=== PATIENT | female | born 1960 | race Caucasian/White ===

== ENCOUNTER 2022-03-23 10:37 | Emergency (ER) | payer OTHER ==
[~2022-03-23] VITALS: Ht 170.2 cm; Wt 86.6 kg
[2022-03-23 12:47] LABS: BASOPHILS ABSOLUTE AUTO 0.07 K/mm3 (0.00-0.23); BASOPHILS PERCENT AUTO 1 % (0-2); EOSINOPHILS ABSOLUTE AUTO 0.08 K/mm3 (0.00-0.68); EOSINOPHILS PERCENT AUTO 1 % (0-6); Hematocrit 43.3 % (33.0-51.0); Hemoglobin 14.2 g/dL (11.5-16.0); IMMATURE GRAN ABSOLUTE AUTO 0.04 K/mm3 (0.00-0.10); IMMATURE GRAN PERCENT AUTO 0 % (0-1); LYMPHOCYTES ABSOLUTE AUTO 2.61 K/mm3 (0.84-5.20); LYMPHOCYTES PERCENT AUTO 21 % (21-46); MONOCYTES ABSOLUTE AUTO 0.73 K/mm3 (0.16-1.47); MONOCYTES PERCENT AUTO 6 % (4-13); Mean Corpuscular HGB 28.6 pg (26.0-34.0); Mean Corpuscular HGB Conc 32.8 g/dL (31.5-36.5); Mean Corpuscular Volume 87 fL (80-100); Mean Platelet Volume 9.1 fL (9.1-12.4); NEUTROPHILS ABSOLUTE AUTO 8.91 K/mm3 (1.96-9.15); NEUTROPHILS PERCENT AUTO 72 % (41-73); Platelet Count 294 K/mm3 (150-400); RDW Coefficient Variation 12.5 % (11.7-14.2); RDW Standard Deviation 40.1 fL (35.1-46.3); Red Blood Cell Count 4.96 M/mm3 (3.80-5.20); White Blood Cell Count 12.44 K/mm3 (4.00-11.30)
[2022-03-23 13:11] LABS: Albumin, Blood 3.4 g/dL (3.4-5.0); Albumin/Globulin Ratio 0.7 (0.8-1.8); Bilirubin, Total 0.5 mg/dL (0.1-1.0); Bun/Creatinine Ratio 15.7 (12.0-20.0); Calcium, Blood 9.7 mg/dL (8.5-10.1); Creatinine, Blood 0.77 mg/dL (0.40-1.00); Globulin, Blood 4.8 g/dL (2.2-4.0); Potassium, Blood 4.5 mmol/L (3.5-5.5); Total Protein, Blood 8.2 g/dL (6.4-8.2)
== END 2022-03-23 14:44 | disposition left against medical advice (07) ==
LOC: ER 10:37
PROVIDERS: Physician Assistant
DX: L02.211 Cutaneous abscess of abdominal wall (principal); Z53.21 Procedure and treatment not carried out due to patient leaving prior to being seen by health care provider
CPT/HCPCS: 36415; 80053; 85025

== ENCOUNTER 2023-11-03 07:59 | Day surgery (SDC) | payer OTHER ==
[2023-11-03] VITALS (14 sets, daily range): BP systolic 115–182; BP diastolic 68–90
[~2023-11-03] VITALS: Ht 169 cm; Wt 92.9 kg
[~2023-11-03 07:59] MED LIST: FENO160 PO; Lactated Ringer's 1,000 ML IV SCH; METHI10 PO
--- NOTE | 2023-11-03 08:42 | NUR ---
History, Chart, Medications and Allergies reviewed before start of procedure. Patient up to Ambulate independently. Gait steady. Pre-Op teaching done. Pt verbalizes understanding. Patient confirms NPO status and agrees with scheduled surgery. Patient states colon prep results light yellow without sediment. Patient States Post-Procedure ride home has been arranged.
[2023-11-03] MEDS ORDERED: propofoL 40 ML IV ONE (09:02)
--- NOTE | 2023-11-03 09:23 | NUR ---
11/03/23 0922 Simon Higgins HISTORY, CHART, MEDICATIONS AND ALLERGIES REVIEWED BEFORE START OF PROCEDURE. PATIENT CONFIRMS NPO STATUS AND AGREES WITH SCHEDULED PROCEDURE. 3-LEAD EKG REVIEWED WITH PHYSICIAN PRIOR TO START OF PROCEDURE. MONITOR INTACT WITH CONTINUOUS PULSE OXIMETRY,CAPNOGRAPHY, 3-LEAD EKG, INTERMITTENT BP. SUPPLEMENTAL O2 TO BE TITRATED THROUGHOUT PROCEDURE TO MAINTAIN O2 SATURATION ABOVE 90%. PATIENT DETERMINED TO BE ASA APPROPRIATE FOR PROPOFOL SEDATION PRIOR TO START OF PROCEDURE BY DR. MORRISSEY.
--- NOTE | 2023-11-03 09:44 | NUR ---
PT TO DAY SURGERY STEP DOWN FROM COLONOSCOPY. BEDSIDE REPORT RECEIEVED. PT IS SLEEPY, BUT RESPONDS TO RN VOICE; ABLE TO MOVE SELF IN BED. VSS. NO COMPLAINTS AT THIS TIME.
--- NOTE | 2023-11-03 10:09 | NUR ---
PT DECLINES PO FLUIDS Patient States Post-Procedure ride home has been arranged.
--- NOTE | 2023-11-03 10:16 | NUR ---
Discharge instructions reviewed with patient. Patient verbalizes understanding. Copy given to patient to take home.
--- NOTE | 2023-11-03 10:23 | NUR ---
Patient up to Ambulate independently. Gait steady. Discharged via wheelchair to private car for ride home.
== END 2023-11-03 10:23 | disposition home or self-care (01) ==
LOC: ORSCMMR 07:59 → ORD 09:00 → ORSCMMR 09:00
PROVIDERS: Internal Medicine Gastroenterology
PROC: 0DBL8ZX Excision of Transverse Colon, Via Natural or Artificial Opening Endoscopic, Diagnostic (ICD-10-PCS; principal; 2023-11-03 09:00)
PROC: 0DBN8ZX Excision of Sigmoid Colon, Via Natural or Artificial Opening Endoscopic, Diagnostic (ICD-10-PCS; principal; 2023-11-03 09:00)
DX: Z12.11 Encounter for screening for malignant neoplasm of colon (principal); D12.3 Benign neoplasm of transverse colon; K63.5 Polyp of colon; E05.00 Thyrotoxicosis with diffuse goiter without thyrotoxic crisis or storm; E78.00 Pure hypercholesterolemia, unspecified; E05.90 Thyrotoxicosis, unspecified without thyrotoxic crisis or storm; Z79.899 Other long term (current) drug therapy
CPT/HCPCS: 88305; J2704; J7120

== ENCOUNTER 2025-01-02 06:12 | Inpatient (IN) | payer OTHER ==
[~2025-01-02] VITALS: Ht 170.2 cm; Wt 88.6 kg
[~2025-01-02 06:12] MED LIST changes: -Lactated Ringer's 1,000 ML IV SCH
[2025-01-02] MEDS ORDERED: Lactated Ringer's 1,000 ML IV ONE ×2 (06:40)
[2025-01-02] MEDS ORDERED: Ondansetron HCl 2 MG / ML 2ML Vial IV ONE (06:40)
[2025-01-02] MEDS ORDERED: Ketorolac Tromethamine 30mg Vial IV ONE (06:40)
[2025-01-02 06:47] LABS: BASOPHILS ABSOLUTE AUTO 0.02 K/mm3 (0.00-0.23); BASOPHILS PERCENT AUTO 0 % (0-2); EOSINOPHILS ABSOLUTE AUTO 0.03 K/mm3 (0.00-0.68); EOSINOPHILS PERCENT AUTO 1 % (0-6); Hematocrit 40.7 % (33.0-51.0); Hemoglobin 13.9 g/dL (11.5-16.0); IMMATURE GRAN ABSOLUTE AUTO 0.01 K/mm3 (0.00-0.10); IMMATURE GRAN PERCENT AUTO 0 % (0-1); LYMPHOCYTES ABSOLUTE AUTO 1.25 K/mm3 (0.84-5.20); LYMPHOCYTES PERCENT AUTO 20 % (21-46); MONOCYTES ABSOLUTE AUTO 0.04 K/mm3 (0.16-1.47); MONOCYTES PERCENT AUTO 1 % (4-13); Mean Corpuscular HGB 29.3 pg (26.0-34.0); Mean Corpuscular HGB Conc 34.2 g/dL (31.5-36.5); Mean Corpuscular Volume 86 fL (80-100); Mean Platelet Volume 9.6 fL (9.1-12.4); NEUTROPHILS ABSOLUTE AUTO 4.96 K/mm3 (1.96-9.15); NEUTROPHILS PERCENT AUTO 79 % (41-73); Platelet Count 153 K/mm3 (150-400); RDW Coefficient Variation 12.7 % (11.7-14.2); RDW Standard Deviation 39.7 fL (35.1-46.3); Red Blood Cell Count 4.75 M/mm3 (3.80-5.20); White Blood Cell Count 6.31 K/mm3 (4.00-11.30)
[2025-01-02 07:17] LABS: Albumin, Blood 3.5 g/dL (3.4-5.0); Albumin/Globulin Ratio 0.9 (0.8-1.8); Bilirubin, Total 0.9 mg/dL (0.1-1.0); Bun/Creatinine Ratio 12.8 (12.0-20.0); Calcium, Blood 8.7 mg/dL (8.5-10.1); Creatinine, Blood 0.86 mg/dL (0.40-1.00); Globulin, Blood 3.8 g/dL (2.2-4.0); Magnesium, Blood 1.8 mg/dL (1.6-2.4); Phosphorus, Blood 2.6 mg/dL (2.5-4.9); Potassium, Blood 3.9 mmol/L (3.5-5.5); Total Protein, Blood 7.3 g/dL (6.4-8.2)
[2025-01-02 07:23] LABS: Influenza A, PCR NEGATIVE (NEGATIVE); Influenza B, PCR NEGATIVE (NEGATIVE); Resp Syncytial Virus, PCR NEGATIVE (NEGATIVE); SARS-Cov-2 (COVID-19) PCR, MMC NEGATIVE (NEGATIVE)
[2025-01-02 07:34] LABS: Free Thyroxine 1.3 ng/dL (0.70-1.60); Thyroid Stimulating Hormone 0.066 uIU/mL (0.360-4.800); Triiodothyronine, Free 3.32 pg/mL (2.18-3.98)
[2025-01-02 07:51] LABS: International Normalized Ratio 1.04; Prothrombin Time Results 11.4 Sec (9.7-11.5)
[2025-01-02 09:34] LABS: Source, Urine Voided
[2025-01-02 09:36] LABS: Appearance, Urine Clear (Clear); Bilirubin, Urine Neg (Neg); Blood, Urine Neg (Neg); Color, Urine Yellow (P-Yellow); Glucose Qualitative, Urine Neg (Neg); Ketones, Urine Neg (Neg); Leukocyte Esterase, Urine 2+ (Neg); Nitrite, Urine Neg (Neg); Protein, Urine 1+ (Neg); Urobilinogen, Urine NORM (Normal)
[2025-01-02 09:43] LABS: Red Blood Cells, Urine 0-2 /hpf (0-2)
[2025-01-02 09:44] LABS: Bacteria Few /hpf; Squamous Epithelial Cells Few /hpf (Few)
[2025-01-02] MEDS ORDERED: CefTRIAXone Sodium 1,000 MG in NS 50 ML IV ONE (10:15)
[2025-01-02] MEDS ORDERED: MetroNIDAZOLE 500MG/NS 100 ml 100 ML IV ONE (10:15)
[2025-01-02] MEDS ORDERED: Ondansetron HCl 2 MG / ML 2ML Vial IV PRN (10:50)
[2025-01-02] MEDS ORDERED: NS 1,000 ML IV SCH (11:00)
--- NOTE | 2025-01-02 11:54 | NUR ---
PT ARRIVED TO UNIT VIA GURNEY FROM ED. SHE AMBULATED INDEPENDENTLY TO THE BED. OBTAINED VS AND WEIGHT. PT IS A&Ox4 AND ABLE TO MAKE NEEDS KNOWN. SHE IS ON RA W/O2 SATS >90%. NO NEEDS OR CONCERNS NOTED @ THIS TIME. BED IN LOW POSITION, CALL LIGHT AND PERSONAL BELONGINGS IN REACH.
[2025-01-02] MEDS ORDERED: PROP50 PO (12:09)
[2025-01-02] MEDS ORDERED: LOSA25 PO (12:09)
[2025-01-02 12:47] VITALS: BP 127/61
[2025-01-02 15:59] VITALS: BP 117/62
[2025-01-02 19:44] VITALS: BP 132/74
[2025-01-02] MEDS ORDERED: Docusate Sodium 100 MG Cap PO SCH (21:00)
[2025-01-02 23:27] VITALS: BP 143/64
--- NOTE | 2025-01-03 06:13 | NUR ---
SHIFT SUMMARY NO ACUTE EVENTS OVERNIGHT. PT A&OX4. VSS ON RA >96%. ON TELE NSR IN 80s. AFEBRILE THROUGHOUT NIGHT. PT CONTINUES TO HAVE NS RUNNING @ 150ML/HR. NO FURTHER QUESTIONS OR CONCERNS AT THIS TIME. WILL CONTINUE WITH PLAN OF CARE.
--- NOTE | 2025-01-03 08:13 | NUR ---
ASSUMPTION NOTE: THIS RN TO ASSUME CARE OF PATIENT. PATIENT IS UP WALKED TO THE BATHROOM AND SITTING UP IN BED. VITAL SIGNS STABLE AND PT HAS CALL LIGHT WITHIN REACH & BED IN LOWEST POSITION.
--- NOTE | 2025-01-03 08:22 | NUR ---
MD ROUNDED: ROUNDED AND PATIENT IS NOW MEDICAL WITHOUT TELE STATUS. PT IS AWARE WE WILL BE WAITING FOR URINE CULTURES TO COME BACK AND POSSIBLE DISCHARGE TOMORROW.
[2025-01-03 08:25] VITALS: BP 96/73
[2025-01-03] MEDS ORDERED: Losartan Potassium 25 MG Tab PO SCH (09:00)
[2025-01-03] MEDS ORDERED: CefTRIAXone Sodium 1,000 MG in NS 100 ML IV SCH (09:00)
[2025-01-03] MEDS ORDERED: Enoxaparin 40 MG/0.4 ML SYR SC SCH (09:00)
[2025-01-03] MEDS ORDERED: MetroNIDAZOLE 500 MG Tab PO SCH (09:00)
[2025-01-03] MEDS ORDERED: Fenofibrate, Micronized 134 MG Capsule PO SCH (09:00)
[2025-01-03 11:43] VITALS: BP 128/70
[2025-01-03 15:14] VITALS: BP 130/86
--- NOTE | 2025-01-03 17:08 | NUR ---
SHIFT SUMMARY: PATIENT IS ALERT AND ORIENTED X4 & COOPERATIE WITH HER CARE,IS ABLE TO [place] NEED SKNOWN & USES CALL LIGHT APPROPRIATSTARR. PATIENT IS NOW MEDICAL WITHOUT TELE STATUS. SATTING >92% ON ROOM AIR. PATIENT IS INDEPENDENT IN THE ROOM. AWARE THE PLAN WILL BE TO STAY ONE MORE NIGHT AND WAIT FOR THE RESULTS OF HER URINE CULTURES. PT CONTINUES TO GET IV AND PO ANTIBIOTICS. HAD FAMILY COME VISIT THORUGHOUT THE SHIFT. PT HAS CALL LIGHT EDITA REACH, BED IN LOWEST POSITTION & STATING NOTHING ELSE IS NEEDED AT THIS TIME.
[2025-01-03 20:05] VITALS: BP 139/75
--- NOTE | 2025-01-04 02:13 | NUR ---
SHIFT SUMMARY- NO ACUTE CHANGES, PT REPORTS FEELING BETTER
[2025-01-04 06:14] VITALS: BP 150/77
[2025-01-04 07:34] VITALS: BP 143/75
[2025-01-04] MEDS ORDERED: Simethicone 80 MG Chew PO PRN (09:00)
[2025-01-04] MEDS ORDERED: Simethicone 80 MG Chew PO ONE (09:00)
[2025-01-04] MEDS ORDERED: METR500 PO (09:37)
[2025-01-04] MEDS ORDERED: SIME80CH PO (09:38)
[2025-01-04] MEDS ORDERED: CIPR500 PO (09:40)
[2025-01-04] MEDS ORDERED: VISBIOME 112.51 EACH PO (09:40)
[2025-01-04 10:33] VITALS: BP 144/75
--- NOTE | 2025-01-04 10:47 | NUR ---
DISCHARGE SUMMARY PT ALERT, ORIENTED X4; CALM AND COOPERATIVE WITH CARE. PT RESTING IN BED, IND IN ROOM. PT REPORTS TENDER TO LEFT ABD, "BLOATED", SOFT, +BT. PT REPORTING 2 EPISODES OF DIARRHEA. PT DENIES CHEST PAIN/PRESSURE, SOB, NAUSEA, AND DIZZINESS. HR AND BP STABLE. SPO2 >90% ON RA, BREATHING EVEN AND UNLABORED. OTHER VSS. EDUCATED PT ON COLITI, DIVERTICULITIS, SEPSIS AND MEDICATIONS. EDUCATED PT ON FOLLOW UP APPOINTMENT. FAXED MEDICATIONS TO [facility] PER PATIENT REQUEST. PT LEFT VIA WHEELCHAIR AT 1045.
== END 2025-01-04 10:45 | disposition home or self-care (01) | DRG 872 ==
LOC: ER 06:12 → PCU 10:41
PROVIDERS: Student in an Organized Health Care Education/Training Program; ADMIT Internal Medicine
DX: A41.9 Sepsis, unspecified organism (principal); K57.32 Diverticulitis of large intestine without perforation or abscess without bleeding; E87.20 Acidosis, unspecified; R65.20 Severe sepsis without septic shock; E05.90 Thyrotoxicosis, unspecified without thyrotoxic crisis or storm; I10 Essential (primary) hypertension; R82.90 Unspecified abnormal findings in urine; E78.5 Hyperlipidemia, unspecified; Z88.0 Allergy status to penicillin; Z88.5 Allergy status to narcotic agent
CPT/HCPCS: 0241U; 36415; 71045; 74177; 80053; 81001; 83605; 83735; 84100; 84439; 84443; 84481; 85025; 85610; 85730; 87040; 87086; 93005; 93010; 96374-59; 96375; 99285-25; A9270; J0696; J1650; J1885; J2405; J7030; J7120; Q9967